=== PATIENT | male | born 1980 | race Caucasian/White ===

== ENCOUNTER 2021-03-31 | Outpatient (REF) | payer OTHER, SELFPAY ==
[2021-04-01 13:14] LABS: Influenza A PCR NEGATIVE (Negative); Influenza B PCR NEGATIVE (Negative); Resp Syncy Virus RNA Qual PCR NEGATIVE (Negative); SARS COV2 PCR INHOUSE NEGATIVE (Negative)
== END 2021-03-31 00:01 | disposition home or self-care (01) ==
LOC: HO.LNP
PROVIDERS: Visit Provider Internal Medicine
DX: Z20.822 Contact with and (suspected) exposure to COVID-19 (principal); R43.9 Unspecified disturbances of smell and taste; R53.83 Other fatigue
CPT/HCPCS: 0241U

== ENCOUNTER 2021-04-02 17:13 | Outpatient (REF) | payer OTHER, SELFPAY ==
--- NOTE | ~2021-04-02 | XR_ITS ---
EXAMINATION: XR CHEST CLINICAL INFORMATION: Pain in the thoracic spine COMPARISON: None TECHNIQUE: 2 views of the chest were obtained. FINDINGS: The cardiomediastinal silhouette is normal. Lung parenchyma is normal. No pleural effusions or pneumothoraces. There is mild wedge compression at T11. XR/XR chest 2V IMPRESSION: Age-indeterminate mild wedge compression at T11. Further evaluation can be made with MRI if warranted.
== END 2021-04-02 17:14 | disposition home or self-care (01) ==
LOC: HO.HMGCX 17:13
PROVIDERS: PCP Internal Medicine; Visit Provider Nurse Practitioner Family
DX: M54.6 Pain in thoracic spine (principal)
CPT/HCPCS: 71046